=== PATIENT | female | born 1965 | race Caucasian/White ===

== ENCOUNTER 2017-07-23 18:39 | Emergency (ER) | payer BC ==
[~2017-07-23] VITALS: Ht 160 cm; Wt 74.0 kg
[2017-07-23 18:46] VITALS: BP 144/65; PULSE 69; RESP 17; TEMP 98; O2SAT 100
[2017-07-23] MEDS ORDERED: SODIUM CHLOR 0.9% 1000 ML INJ 1,000 ML IV SCH (18:52)
[2017-07-23] MEDS ORDERED: METO50TA PO (19:09)
[2017-07-23] MEDS ORDERED: GABA300C5 PO (19:09)
[2017-07-23] MEDS ORDERED: SODIUM CHLOR 0.9% 1000 ML INJ 1,000 ML IV ONE (19:10)
[2017-07-23] MEDS ORDERED: METOCLOPRAMIDE HCL 10 MG/2 ML VIAL IV PUSH ONE (19:15)
[2017-07-23] MEDS ORDERED: PANTOPRAZOLE SODIUM 40 MG VIAL IV PUSH ONE (19:15)
[2017-07-23] MEDS ORDERED: HYDROmorphone HCL PF 1 MG/ML VIAL IV PUSH ONE (19:15)
[2017-07-23 19:23] VITALS: BP 133/79; PULSE 59; RESP 18; O2SAT 100
[2017-07-23] MEDS ORDERED: HYDROmorphone HCL PF 2 MG/ML VIAL IV PUSH ONE (20:15)
[2017-07-23 20:29] LABS: AUTOMATED NEUTROPHIL # 2.5 TH/MM3 (1.8-7.7); BASOPHIL % 0.5 % (0.0-2.0); EOSINOPHIL # 0.1 TH/MM3 (0-0.4); EOSINOPHIL % 1.4 % (0.0-4.0); HEMATOCRIT 32.9 % (35.0-46.0); HEMOGLOBIN 10.8 GM/DL (11.6-15.3); LYMPH % 41.2 % (9.0-44.0); LYMPHOCYTE # 2.1 TH/MM3 (1.0-4.8); MEAN CELL VOLUME 81.4 FL (80.0-100.0); MEAN CORPUSCULAR HEMOGLOBIN 26.6 PG (27.0-34.0); MEAN CORPUSCULAR HGB CONC 32.7 % (32.0-36.0); MEAN PLATELET VOLUME 7.3 FL (7.0-11.0); MONOCYTE # 0.4 TH/MM3 (0-0.9); NEUT % 48.9 % (16.0-70.0); PLATELET COUNT 277 TH/MM3 (150-450); RED BLOOD COUNT 4.04 MIL/MM3 (4.00-5.30); RED CELL DISTRIBUTION WIDTH 16.7 % (11.6-17.2); WHITE BLOOD COUNT 5.2 TH/MM3 (4.0-11.0)
[2017-07-23 20:35] VITALS: BP 157/71; PULSE 64; RESP 18; O2SAT 100
--- NOTE | 2017-07-23 20:37 | PD ---
HPI Chief Complaint: Abdominal Pain Time Seen by Provider: 18:51 Travel History International Travel<30 days: No Contact w/Intl Traveler<30days: No Traveled to known affect area: No History of Present Illness HPI 52-year-old female that presents to the ED for evaluation of abdominal pain in the epigastric area. Per patient has had this for the past 2-3 days. The patient is been having nausea as well. She is a history of pancreatitis as well as gastric sleeve and believes that is secondary to 1 of these conditions. She does take Percocet and GI cocktail with some relief. Pain continues and now she continues which is what concerned her. She did throw up a couple times today. She has any bowel movement issues. No new foods. She is from [place]. She denies any chest pain or shortness of breath. She is states that she is going home tomorrow and she follows with her GI doctor when she gets back. She states that currently her pain is 7 out of 10 in her upper epigastric area. Has no allergies to medication. No other medical issues. 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 HEAD: Atraumatic. Normocephalic. EYES: Pupils equal and round. No scleral icterus. No injection or drainage. ENT: No nasal bleeding or discharge. Mucous membranes pink and moist. Tongue is midline. No uvula deviation. NECK: Trachea midline. No JVD. CARDIOVASCULAR: Regular rate and rhythm. No murmurs, S3, S4. RESPIRATORY: No accessory muscle use. Clear to auscultation. Breath sounds equal bilaterally. GASTROINTESTINAL: Abdomen soft, tender to palpation of the epigastric area, nondistended. Hepatic and splenic margins not palpable. MUSCULOSKELETAL: Extremities without clubbing, cyanosis, or edema. No obvious deformities. Full range of motion of the upper and lower extremities bilaterally. 2+ pulses bilaterally. NEUROLOGICAL: Awake and alert. No obvious cranial nerve deficits. Motor grossly within normal limits. Five out of 5 muscle strength in the arms and legs. Normal speech. PSYCHIATRIC: Appropriate mood and affect; insight and judgment normal. Data Data Last Documented VS Vital Signs Date Time Temp Pulse Resp B/P (MAP) Pulse Ox O2 Delivery O2 Flow Rate FiO2 07/23/17 20:35 64 18 157/71 (99) 100 07/23/17 19:23 Room Air 07/23/17 18:46 98.0 Orders Orders Complete Blood Count With Diff (07/23/17 18:52) Comprehensive Metabolic Panel (07/23/17 18:52) Lipase (07/23/17 18:52) Lactic Acid (07/23/17 18:52) Urinalysis - C+S If Indicated (07/23/17 18:52) Iv Access Insert/Monitor (07/23/17 18:52) Ecg Monitoring (07/23/17 18:52) Sodium Chlor 0.9% 1000 Ml Inj (Ns 1000 M (07/23/17 18:52) Metoclopramide Inj (Reglan Inj) (07/23/17 19:15) Hydromorphone Pf Inj (Dilaudid Pf Inj) (07/23/17 19:15) Pantoprazole Inj (Protonix Inj) (07/23/17 19:15) Sodium Chlor 0.9% 1000 Ml Inj (Ns 1000 M (07/23/17 19:10) Hydromorphone Pf Inj (Dilaudid Pf Inj) (07/23/17 20:15) Ct Abd/Pel W Iv Contrast(Rout) (07/23/17 ) Iohexol 350 Inj (Omnipaque 350 Inj) (07/23/17 21:10) Ed Discharge Order (07/23/17 21:45) Labs Laboratory Tests Test 07/23/17 19:45 White Blood Count 5.2 TH/MM3 Red Blood Count 4.04 MIL/MM3 Hemoglobin 10.8 GM/DL Hematocrit 32.9 % Mean Corpuscular Volume 81.4 FL Mean Corpuscular Hemoglobin 26.6 PG Mean Corpuscular Hemoglobin Concent 32.7 % Red Cell Distribution Width 16.7 % Platelet Count 277 TH/MM3 Mean Platelet Volume 7.3 FL Neutrophils (%) (Auto) 48.9 % Lymphocytes (%) (Auto) 41.2 % Monocytes (%) (Auto) 8.0 % Eosinophils (%) (Auto) 1.4 % Basophils (%) (Auto) 0.5 % Neutrophils # (Auto) 2.5 TH/MM3 Lymphocytes # (Auto) 2.1 TH/MM3 Monocytes # (Auto) 0.4 TH/MM3 Eosinophils # (Auto) 0.1 TH/MM3 Basophils # (Auto) 0.0 TH/MM3 CBC Comment DIFF FINAL Differential Comment Blood Urea Nitrogen 15 MG/DL Creatinine 0.74 MG/DL Random Glucose 83 MG/DL Total Protein 6.9 GM/DL Albumin 3.6 GM/DL Calcium Level 8.9 MG/DL Alkaline Phosphatase 90 U/L Aspartate Amino Transf (AST/SGOT) 9 U/L Alanine Aminotransferase (ALT/SGPT) 16 U/L Total Bilirubin 0.3 MG/DL Sodium Level 144 MEQ/L Potassium Level 4.0 MEQ/L Chloride Level 110 MEQ/L Carbon Dioxide Level 24.5 MEQ/L Anion Gap 10 MEQ/L Estimat Glomerular Filtration Rate 82 ML/MIN Lactic Acid Level 1.3 mmol/L Lipase 126 U/L [facility] Medical Decision Making Medical Screen Exam Complete: Yes Emergency Medical Condition: Yes Medical Record Reviewed: Yes Interpretation(s) CBC & BMP Diagram 07/23/17 19:45 Total Protein 6.9, Albumin 3.6, Calcium Level 8.9, Alkaline Phosphatase 90, Aspartate Amino Transf (AST/SGOT) 9 L, Alanine Aminotransferase (ALT/SGPT) 16, Total Bilirubin 0.3 Last Impressions Abdomen/Pelvis CT 07/23/17 0000 Signed Impressions: CONCLUSION: 1. No acute abnormality to explain the patient's pain. 2. Rim calcified low density lesion seen involving the mesentery as detailed a josé. The exact etiology is uncertain. They could relate to mesenteric cyst or prior hematomas with calcification of the chu. There felt to be benign. 3. Constipation. Differential Diagnosis Epigastric pain versus pancreatitis versus gastritis versus acute on chronic pain versus obstruction Narrative Course 52-year-old female that presents to the ED for evaluation of epigastric pain. Patient was properly examined and was found to have signs and symptoms of unclear etiology with deafly concerning for pancreatitis secondary to her history. Labs and imaging order. Patient was given IV pain medications and fluids. labs and imaging showed no sign of acute disease. Chronic changes and some constipation. Patient feels better. At this time patient will be discharged with instructions to continue taking her medications and follow with her doctor in [place]. She already takes narcotics at home. Continue taking his medications. See ED if worsening symptoms. Follow-up with PCP. Patient will be sent home with copies of the reports and labs. Diagnosis Primary Impression: Epigastric abdominal pain Patient Instructions: General Instructions Additional Instructions: Take your medications as prescribed. Follow with her GI doctor this week. see ED if worsening symptoms. Med/Other Pt SpecificInfo: Prescription(s) given Disposition: 01 DISCHARGE HOME Condition: Stable Bjorn Duenas Jul 23, 2017 20:37
[2017-07-23 20:38] LABS: ALBUMIN 3.6 GM/DL (3.4-5.0); AST (GOT) 9 U/L (15-37); BICARBONATE 24.5 MEQ/L (21.0-32.0); BLOOD UREA NITROGEN 15 MG/DL (7-18); CALCIUM 8.9 MG/DL (8.5-10.1); CHLORIDE 110 MEQ/L (98-107); CREATININE 0.74 MG/DL (0.50-1.00); GLOMERULAR FILTRATION RATE 82 ML/MIN (>89); GLUCOSE,RANDOM 83 MG/DL (74-106); SODIUM (NA) 144 MEQ/L (136-145)
[2017-07-23 20:39] LABS: ALT (GPT) 16 U/L (10-53)
[2017-07-23 20:41] LABS: ALKALINE PHOSPHATASE 90 U/L (45-117); TOTAL BILIRUBIN ADULT 0.3 MG/DL (0.2-1.0); TOTAL PROTEIN 6.9 GM/DL (6.4-8.2)
[2017-07-23] MEDS ORDERED: IOHEXOL 350 MG/ML 10 ML VIAL (for RAD DIAG) IVCONTRAST ONE (21:10)
--- NOTE | 2017-07-23 21:32 | RADRPT ---
EXAM DATE: 07/23/2017 9:20 PM EDT AGE/SEX: 52 years / Female INDICATIONS: Epigastric abdominal pain. CLINICAL DATA: This is the patient's initial encounter. Patient reports that signs and symptoms have been present for 2 days and indicates a pain score of 7/10. MEDICAL/SURGICAL HISTORY: Pancreatitis. Hypertension. Cholecystectomy. Hysterectomy. Gastric sleeve. ORAL CONTRAST: No oral contrast ingested. RADIATION DOSE: 8.04 CTDI (mGy) COMPARISON: . TECHNIQUE: Multiple contiguous axial images were obtained through the abdomen and pelvis following b olus infusion of 100 ml Omnipaque 350 (iohexol) nonionic water-soluble contrast as a single exam do se. No oral contrast ingested. Using automated exposure control and adjustment of the mA and/or kV a ccording to patient size, the radiation dose was kept as low as reasonably achievable to obtain optim al diagnostic quality images. FINDINGS: Lower Lungs: The visualized lower lungs are clear. Liver: The liver has a homogeneous density without space-occupying lesion. There is no dilation of th e biliary tree. Gallbladder is surgically absent. Spleen: Homogeneous density without enlargement. Small granulomatous calcifications. Pancreas: Unremarkable without mass or calcification. Kidneys: Normal in size and shape. No evidence of mass or hydronephrosis. Adrenal Glands: Unremarkable. Aorta: The aorta and proximal iliac vessels are grossly unremarkable without aneurysmal dilation. Bowel/Mesentery: The appendix is normal by CT criteria. The bowel loops are grossly unremarkable. Th e cecum and sigmoid colon have a normal configuration. A moderate stool burden is seen throughout the colon which is normal in caliber. A rim calcified rounded density is seen adjacent to the descending colon along its medial border. This measures 2.2 cm in diameter. 2 adjacent 1 cm rim calcified lesio ns are also seen anteriorly within the abdominal cavity with similar characteristics. Surgical clips associated with the stomach consistent with gastric bypass. Abdominal Wall: Intact. Retroperitoneum: No evidence of adenopathy in the retrocrural, para-aortic, or deep pelvic regions. Bladder: Contours are smooth. Reproductive Organs: No abnormal masses or calcifications seen. Inguinal: The inguinal region is unremarkable without evidence of adenopathy. Bony Structures: Unremarkable. CONCLUSION: 1. No acute abnormality to explain the patient's pain. 2. Rim calcified low density lesion seen involving the mesentery as detailed above. The exact etiolo gy is uncertain. They could relate to mesenteric cyst or prior hematomas with calcification of the wa lls. There felt to be benign. 3. Constipation. Electronically signed by: Leon Ge MD 07/23/2017 9:31 PM EDT
--- NOTE | 2017-07-23 21:48 | PD ---
Physical Exam Date Seen by Provider: Jul 23, 2017 Time Seen by Provider: 21:46 Narrative Patient is a CAT scan that does not show any obvious findings her lipase is negative she is given Protonix and IV pain meds she feels better she is discharged to follow-up with her treasury associate in [place] she is returning home tomorrow Data Data Last Documented VS Vital Signs Date Time Temp Pulse Resp B/P (MAP) Pulse Ox O2 Delivery O2 Flow Rate FiO2 07/23/17 20:35 64 18 157/71 (99) 100 07/23/17 19:23 Room Air 07/23/17 18:46 98.0 Orders Orders Complete Blood Count With Diff (07/23/17 18:52) Comprehensive Metabolic Panel (07/23/17 18:52) Lipase (07/23/17 18:52) Lactic Acid (07/23/17 18:52) Urinalysis - C+S If Indicated (07/23/17 18:52) Iv Access Insert/Monitor (07/23/17 18:52) Ecg Monitoring (07/23/17 18:52) Sodium Chlor 0.9% 1000 Ml Inj (Ns 1000 M (07/23/17 18:52) Metoclopramide Inj (Reglan Inj) (07/23/17 19:15) Hydromorphone Pf Inj (Dilaudid Pf Inj) (07/23/17 19:15) Pantoprazole Inj (Protonix Inj) (07/23/17 19:15) Sodium Chlor 0.9% 1000 Ml Inj (Ns 1000 M (07/23/17 19:10) Hydromorphone Pf Inj (Dilaudid Pf Inj) (07/23/17 20:15) Ct Abd/Pel W Iv Contrast(Rout) (07/23/17 ) Iohexol 350 Inj (Omnipaque 350 Inj) (07/23/17 21:10) Ed Discharge Order (07/23/17 21:45) Labs Laboratory Tests Test 07/23/17 19:45 White Blood Count 5.2 TH/MM3 Red Blood Count 4.04 MIL/MM3 Hemoglobin 10.8 GM/DL Hematocrit 32.9 % Mean Corpuscular Volume 81.4 FL Mean Corpuscular Hemoglobin 26.6 PG Mean Corpuscular Hemoglobin Concent 32.7 % Red Cell Distribution Width 16.7 % Platelet Count 277 TH/MM3 Mean Platelet Volume 7.3 FL Neutrophils (%) (Auto) 48.9 % Lymphocytes (%) (Auto) 41.2 % Monocytes (%) (Auto) 8.0 % Eosinophils (%) (Auto) 1.4 % Basophils (%) (Auto) 0.5 % Neutrophils # (Auto) 2.5 TH/MM3 Lymphocytes # (Auto) 2.1 TH/MM3 Monocytes # (Auto) 0.4 TH/MM3 Eosinophils # (Auto) 0.1 TH/MM3 Basophils # (Auto) 0.0 TH/MM3 CBC Comment DIFF FINAL Differential Comment Blood Urea Nitrogen 15 MG/DL Creatinine 0.74 MG/DL Random Glucose 83 MG/DL Total Protein 6.9 GM/DL Albumin 3.6 GM/DL Calcium Level 8.9 MG/DL Alkaline Phosphatase 90 U/L Aspartate Amino Transf (AST/SGOT) 9 U/L Alanine Aminotransferase (ALT/SGPT) 16 U/L Total Bilirubin 0.3 MG/DL Sodium Level 144 MEQ/L Potassium Level 4.0 MEQ/L Chloride Level 110 MEQ/L Carbon Dioxide Level 24.5 MEQ/L Anion Gap 10 MEQ/L Estimat Glomerular Filtration Rate 82 ML/MIN Lactic Acid Level 1.3 mmol/L Lipase 126 U/L [facility] Medical Record Reviewed: Yes Supervised Visit with MINDY: Yes Franco Drake MD Jul 23, 2017 21:48
[2017-07-23 21:54] VITALS: BP 138/64
== END 2017-07-23 22:22 | disposition home or self-care (01) ==
LOC: NEPE 18:39
DX: R10.13 Epigastric pain (principal); K59.00 Constipation, unspecified; I10 Essential (primary) hypertension
CPT/HCPCS: 74177; 80053; 83605; 83690; 85025; 96361; 96374; 96375; 99284; C9113; J1170; J2765; J7030; Q9967